=== PATIENT | male | born 1985 | race American Indian/Alaskan Native ===

== ENCOUNTER 2019-04-02 12:31 | Emergency (ER) | payer SELFPAY ==
[2019-04-02 12:50] VITALS: BP 129/84
--- NOTE | 2019-04-02 13:17 | Emergency Department Report ---
Chief Complaint: Eye Problems Stated Complaint: STYE ON EYE/KNEE PAIN LT Time Seen by Provider: 04/02/19 13:12 - HPI History of Present Illness: states that he has a lump to the left eyelid that began several years ago no PCP no vision changes no changes in the lump c/o left knee pain for a few days no fall or injury pt is ambulatory without difficulty no numbness or weakness PMHx none no allergies to meds vitals are normal on exam: 0.5 cm area of edema to the left upper eyelid,no ttp, no erythema, no fluctuance, no drainage, PERRL, EOMI, normal conjunctiva FROM of the left knee without difficulty, no bony TTP, no edema, no deformity, no joint laxity, neurovascularly intact no signs of joint effusion, septic joint, DVT, and no trauma or bony tenderness to warrant emergent imaging at this time examination consistent with chalazion, no active infection pt is presenting with a non medical emergency at this time, there is not threat to life or limb at this time pt referred to PCP, ophthalmology, and orthopedic given strict return precautions. - Exam Vital Signs: Vital Signs 04/02/19 12:49 Temperature 97.9 F Pulse Rate 78 Respiratory 18 Rate Blood Pressure 129/84 [Right] O2 Sat by Pulse 100 Oximetry MSE screening note: Focused history and physical exam performed. ED Disposition for MSE Clinical Impression: Chalazion left upper eyelid Left knee pain Qualifiers: Chronicity: acute Qualified Code(s): M25.562 - Pain in left knee Disposition: Z-07 MED SCREENING EXAM-LEFT Is pt being admited?: No Does the pt Need Aspirin: No Condition: Stable Instructions: Chalazion (ED), Arthralgia (ED) Additional Instructions: please follow up with an steam hoist operator. please follow up with an orthopedic doctor. please follow up with a primary care doctor. may take Tylenol or ibuprofen over the counter for discomfort. may use ice for 15 minutes at a time, rest, elevation of the leg. return to the emergency room for any new or worsening symptoms. Referrals: [facility] [Provider Group] - 2-3 Days SONA GARNETT MD [Staff Physician] - 2-3 Days MALU FLEMING MD [Staff Physician] - 2-3 Days [facility] [Outside] - 2-3 Days [facility] [Outside] - 2-3 Days [facility] [Provider Group] - 2-3 Days IDALMIS RUSH MD [Staff Physician] - 2-3 Days Time of Disposition: 13:17 Print Language: LAO
== END 2019-04-02 14:04 | disposition left against medical advice (07) ==
LOC: ED 12:31
DX: H00.14 Chalazion left upper eyelid (principal); M25.562 Pain in left knee
CPT/HCPCS: 99281

== ENCOUNTER 2019-04-10 22:05 | Emergency (ER) | payer SELFPAY ==
[2019-04-11] MEDS ORDERED: predniSONE 20 MG TAB PO ONE (00:37)
--- NOTE | 2019-04-11 00:53 | Emergency Department Report ---
ED Back Pain/Injury HPI - General Chief Complaint: Back Pain/Injury Stated Complaint: BACK AND KNEE PAIN Time Seen by Provider: 04/10/19 22:18 Source: patient Limitations: No Limitations - History of Present Illness Initial Comments: This is a 33-year-old male with no prior medical history presents the ED complaining of upper to mid back pain as well as left knee pain for the past 3 weeks. Patient denies any injury trauma fall. Patient denies abdominal pain, fever, chills, nausea vomiting, chest pain or shortness of breath MD Complaint: back pain -: week(s) Similar Symptoms Previously: No Place: home Severity scale (0 -10): 5 Quality: aching Associated Symptoms: denies: confusion, weakness, chest pain, numbness, difficulty walking, nausea/vomiting - Related Data Previous Rx's Medication Instructions Recorded Last Taken Type Cyclobenzaprine [Flexeril] 10 mg PO QHS PRN #20 tablet 04/11/19 Unknown Rx Ibuprofen [Motrin] 800 mg PO Q8HR #30 tablet 04/11/19 Unknown Rx Allergies Allergy/AdvReac Type Severity Reaction Status Date / Time No Known Allergies Allergy Verified 04/10/19 22:11 ED Review of Systems ROS: Stated complaint: BACK AND KNEE PAIN Other details as noted in HPI Comment: All other systems reviewed and negative ED Back Pain Physical Exam - Exam General: Vital signs noted. No distress. Alert and acting appropriately. Back/Abdomen: No Abdominal Tenderness, No Perithoracic Tenderness, No Perilumbar Tenderness, No Sacroiliac Tenderness, No Flank Tenderness, No Straight Leg Raise Pain Neuro: Yes Normal Sensation, Yes Normal DTR's, Yes Normal Gait, No Motor Weakness ED Medical Decision Making - Medical Decision Making 33-year-old male presents to ED for myalgia of the upper back ED course: There is no spinal tenderness or any signs of swelling or injury to the back. Vital signs are normal patient is in no acute distress Discussed with patient follow-up with primary care physician. Discussed the patient and take medications as prescribed. Patient has no neurological deficit. Patient is alert and oriented 3 and understands all instructions given. Discussed drowsiness effect of Flexeril makes her drowsy and not to operate machinery while taking flexeril Critical care attestation.: If time is entered above; I have spent that time in minutes in the direct care of this critically ill patient, excluding procedure time. ED Disposition Clinical Impression: Left knee pain, Myalgia, Strain of fascia of lower back Disposition: DC-01 TO HOME OR SELFCARE Is pt being admited?: No Does the pt Need Aspirin: No Condition: Stable Instructions: Arthralgia (ED) Additional Instructions: Make sure to follow up with the primary care physician as discussed. Take all your medications as you've been prescribed. If you have any worsening symptoms or develop new symptoms please return to ED immediately. Prescriptions: Cyclobenzaprine [Flexeril] 10 mg PO QHS PRN #20 tablet PRN Reason: Muscle Spasm Ibuprofen [Motrin] 800 mg PO Q8HR #30 tablet Referrals: [facility] [Outside] - 3-5 Days [facility] [Outside] - 3-5 Days Forms: Work/School Release Form(ED) Time of Disposition: 01:39
== END 2019-04-11 01:53 | disposition home or self-care (01) ==
LOC: ED 22:05
DX: S39.012A Strain of muscle, fascia and tendon of lower back, initial encounter (principal); M25.562 Pain in left knee; X58.XXXA Exposure to other specified factors, initial encounter; Y93.89 Activity, other specified; Y92.89 Other specified places as the place of occurrence of the external cause; Y99.8 Other external cause status
CPT/HCPCS: 99282; J7512

== ENCOUNTER 2020-04-18 17:06 | Emergency (ER) | payer SELFPAY ==
[2020-04-18] MEDS ORDERED: ONDANSETRON 4 MG/2 ML INJ IV ONE (17:15)
[2020-04-18] MEDS ORDERED: MORPHINE 4 MG/1 ML INJ IV ONE (17:15)
[2020-04-18] MEDS ORDERED: SODIUM CHLORIDE 0.9% 1000 ML 1,000 ML IV ONE ×2 (17:15→18:33)
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
[2020-04-18 18:00] LABS: Basophils % (Auto) 0.7 % (0.0-1.8); Eosinophils % (Auto) 0.8 % (0.0-4.3); Hematocrit 44.2 % (35.5-45.6); Hemoglobin 14.5 gm/dl (11.8-15.2); Lymphocytes % (Auto) 23.3 % (13.4-35.0); Mean Corpuscular HGB Conc 33 % (32-34); Mean Corpuscular Volume 80 fl (84-94); Monocytes # (Auto) 0.5 K/mm3 (0.0-0.8); Monocytes % (Auto) 10.8 % (0.0-7.3); Platelet Count 180 K/mm3 (140-440); Red Blood Count 5.51 M/mm3 (3.65-5.03); Red Cell Distribution Width 14.6 % (13.2-15.2)
[2020-04-18 18:21] LABS: INR 1.08 (0.87-1.13)
[2020-04-18 18:22] LABS: Partial Thromboplastin Time 31.5 Sec. (24.2-36.6)
[2020-04-18 18:25] LABS: Alanine Aminotransferase 17 units/L (7-56); Albumin 4.6 g/dL (3.9-5); BUN/Creatinine Ratio 10; Blood Urea Nitrogen 11 mg/dL (9-20); Calcium 9.3 mg/dL (8.4-10.2); Hemolysis Index 3
[2020-04-18] MEDS ORDERED: ONDANSETRON 4 MG/2 ML INJ ONE (19:18)
[2020-04-18] MEDS ORDERED: MORPHINE 4 MG/1 ML INJ ONE (19:19)
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
[2020-04-18 20:12] VITALS: BP 100/64
== END 2020-04-18 20:35 | disposition home or self-care (01) ==
LOC: ED 17:06
DX: S20.211A Contusion of right front wall of thorax, initial encounter (principal); Z98.890 Other specified postprocedural states; Z79.899 Other long term (current) drug therapy; W22.8XXA Striking against or struck by other objects, initial encounter; Y93.89 Activity, other specified; Y92.89 Other specified places as the place of occurrence of the external cause; Y99.8 Other external cause status
CPT/HCPCS: 36415; 71260; 80053; 84484; 85025; 85610; 85730; 93005; 96361; 96374; 96375; 99284; J2270; J2405; J7030; Q9967